=== PATIENT | male | born 1990 | race African-American/Black ===

== ENCOUNTER 2022-09-21 00:57 | Emergency (ER) | payer SELFPAY ==
[~2022-09-21] VITALS: Ht 182.9 cm; Wt 81.6 kg
[2022-09-21 01:07] VITALS: BP 134/76
--- NOTE | 2022-09-21 01:12 | NUR ---
TO LOBBY FOLLOWING TRIAGE
[2022-09-21] MEDS ORDERED: MORPHINE SULFATE 4 MG/ML SYR IVP ONE (03:00)
[2022-09-21] MEDS ORDERED: metroNIDAZOLE 500 MG/NS PREMIX 100 ML IV ONE (03:05)
[2022-09-21 03:30] VITALS: BP 107/74
[2022-09-21 03:30] LABS: BASOPHILS % (AUTO) 0.6 % (0.0-2.0); EOSINOPHILS # (AUTO) 0.1 K/uL (0-0.4); EOSINOPHILS % (AUTO) 1.3 % (0.0-4.0); HEMATOCRIT 41.5 % (36-52); HEMOGLOBIN 13.6 g/dL (12.0-18.0); LYMPHOCYTES # (AUTO) 1.6 K/uL (2.0-11.5); LYMPHOCYTES % (AUTO) 18.5 % (20.5-51.1); MEAN CORPUSCULAR HEMOGLOBIN 27 pg (27-31); MEAN CORPUSCULAR HGB CONC 33 g/dL (33-37); MEAN CORPUSCULAR VOLUME 83.5 fL (80-94); MONOCYTES # (AUTO) 1.2 K/uL (0.8-1.0); NEUTROPHILS # (AUTO) 5.8 K/uL (1.8-7.7); NEUTROPHILS % (AUTO) 65.6 % (42.2-75.2); PLATELET COUNT (AUTO) 211 K/uL (140-450); RED BLOOD CELL COUNT(AUTO) 4.97 MIL/uL (4.20-6.10); RED CELL DISTRIBUTION WIDTH 13.9 % (11.6-13.7); WHITE BLOOD COUNT (AUTO) 8.8 K/uL (4.8-10.8)
--- NOTE | 2022-09-21 03:35 | NUR ---
SWAB COLLECTED AND HANDED TO LAB
--- NOTE | 2022-09-21 03:41 | NUR ---
VAMSIN AMBULATED TO WITH STEADY GAIT
[2022-09-21 03:48] LABS: ALBUMIN 3.5 g/dL (3.4-5.0); ANION GAP 11.6 (8-16); CARBON DIOXIDE 29.2 mmol/L (21-32); CREATININE 1.1 mg/dL (0.6-1.3); POTASSIUM 3.8 mmol/L (3.5-5.1); TOTAL BILIRUBIN 0.4 mg/dL (0.0-1.0)
[2022-09-21] MEDS ORDERED: HYDROmorphone PFS 2 MG/ML SYR IVP ONE ×2 (03:50→04:30)
[2022-09-21] MEDS ORDERED: LIDOCAINE 1% 500 MG/ 50 ML VIAL INJ ONE (03:50)
[2022-09-21 03:53] LABS: APPEARANCE,URINE CLEAR (CLEAR); BILIRUBIN,URINE NEGATIVE (NEGATIVE); BLOOD, URINE NEGATIVE (NEGATIVE); COLOR,URINE YELLOW (YELLOW); LEUKOCYTE ESTERASE ,URINE NEGATIVE (NEGATIVE); NITRITE, URINE NEGATIVE (NEGATIVE); UGLUCOSE NEGATIVE (NEGATIVE)
[2022-09-21] MEDS ORDERED: LIDOCAINE MPF 1% 5 ML ONE (03:58)
[2022-09-21] MEDS ORDERED: CEPH-588 PO (04:36)
[2022-09-21] MEDS ORDERED: NAPR-54 PO (04:36)
--- NOTE | 2022-09-21 04:36 | NUR ---
PATIENT ELOPED FROM FACILITY. DISCHARGE INSTRUCTIONS NOT GIVEN TO PATIENT. DR. RODRIGUEZ NOTIFIED.
--- NOTE | 2022-09-21 04:37 | NUR ---
Galo mondragon in ED - 09/21/22 at 0440 by [facility] PT LEFT WITH IV IN. [employer] CONTACTED
--- NOTE | 2022-09-21 04:40 | NUR ---
PT CAME BACK. IV REMOVED.
--- NOTE | 2022-09-21 04:52 | NUR ---
Patient discharged with v/s stable. Written and verbal after care instructions given and explained. Patient verbalized understanding. Ambulatory with steady gait. All questions addressed prior to discharge. Advised to follow up with PMD.
== END 2022-09-21 04:52 | disposition home or self-care (01) ==
LOC: MED 00:57
DX: K61.1 Rectal abscess (principal)
CPT/HCPCS: 10060; 36415; 80053; 81003; 83605; 85025; 87040; 96374; 99284; J2001; J2270